=== PATIENT | female | born 1975 | race Caucasian/White ===

== ENCOUNTER 2019-11-30 18:33 | Emergency (ER) | payer OTHER ==
[2019-11-30 18:38] VITALS: BP 118/40; PULSE 81; TEMP 98.7; BMI 26.6
[2019-11-30] MEDS ORDERED: TETANUS AND DIPHTHERIA TOXOID 0.5 ML DISP.SYRIN IM ONE (19:13)
[2019-11-30] MEDS ORDERED: HIV POST EXPOSURE PROPHYLAXIS KIT NR ONE (19:14)
[2019-11-30] MEDS ORDERED: HIV POST EXPOSURE PROPHYLAXIS KIT PO ONE (19:25)
--- NOTE | 2019-11-30 19:47 | PDOC ---
History of Present Illness - General Chief Complaint: Injury Stated Complaint: PRICK BY NEEDLE AT WORK Time Seen by Provider: 11/30/19 19:02 History Source: Patient Exam Limitations: No Limitations - History of Present Illness Initial Comments: 11/30/19 19:05 Patient is a 44-year-old female who presents to the ED after sustaining a needlestick to her right index finger. 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 The patient is unsure whether the needle was used to or clean. If the needle was used there is no way for her to know who the source patient was. The patient has a history of seasonal asthma but otherwise denies any past medical history. She denies any pain to the area. She immediately washed the area with antibacterial soap and warm water and expressed blood from the area. She states she was unable to see employee health at her job for 2 days so she came to the ED for evaluation. Past History - Medical History Allergies/Adverse Reactions: Allergies Allergy/AdvReac Type Severity Reaction Status Date / Time No Known Allergies Allergy Verified 11/30/19 19:13 Home Medications: Ambulatory Orders Raltegravir [Isentress -] 400 mg PO BID #60 tab 11/30/19 Asthma: Yes COPD: No - Reproductive History Is Patient Now?: No - Psycho-Social/Smoking History Smoking History: Never smoked - Substance Abuse Hx (Audit-C & DAST Scrn) How often the patient has a drink containing alcohol: Monthly or less Score: In Men: 4 or > Positive; In Women: 3 or > Positive: 1 Screen Result (Pos requires Nsg. Audit-10AR): Negative In the last yr the pt used illegal drug/Rx for NonMed reason: No Score: Yes response is considered Positive: 0 Screen Result (Positive result requires Nsg. DAST-10): Negative Review of Systems - Review of Systems Comments:: 11/30/19 19:05 - Review of Systems Able to Perform ROS?: Yes Constitutional: No: Fever, Chills, Loss of Appetite, Night Sweats, Weakness HEENTM: No: Eye Pain, Vision changes, Ear Pain, Throat Pain, Throat Swelling, Mouth Pain, Difficulty Swallowing Respiratory: No: Cough, Shortness of Breath, Wheezing, Sputum Production Cardiac (ROS): No: Chest Pain, Chest Tightness, Palpitations, Irregular Heart Beat, Edema ABD/GI: No: Nausea, Vomiting, Abdominal Pain, Diarrhea : No Dysuria, No Hematuria, No Frequency, No Urgency Musculoskeletal: No: Muscle Pain, Back Pain, Joint Pain, Muscle Weakness, Neck Pain Integumentary: No: Lesions, Rash; Positive: needlestick right index finger Neurological: No: Headache, Numbness, Tingling, Weakness, Speech Difficulties *Physical Exam - Vital Signs Last Vital Signs Temp Pulse Resp BP Pulse Ox 98.7 F 81 19 118/40 L 99 11/30/19 18:35 11/30/19 18:35 11/30/19 18:35 11/30/19 18:35 11/30/19 18:35 - Physical Exam 11/30/19 19:07 - Physical Exam General Appearance: Nourished, Appropriately Dressed, No Distress HEENT: EOMI, Normal Voice, Hearing Grossly Normal Neck: Supple, No Lymphadenopathy (R), No Lymphadenopathy (L), No Rigidity, No Decreased range of motion Respiratory/Chest: Lungs Clear, Normal Breath Sounds. No Respiratory Distress, No Accessory Muscle Use Cardiovascular: Regular Rhythm, Regular Rate, S1, S2 Gastrointestinal/Abdominal: Normal Bowel Sounds, Soft. Non-tender, No Guarding, No Rebound, No Rigidity Musculoskeletal: Normal Inspection. No Decreased Range of Motion Extremity: Normal Capillary Refill, Normal Inspection Integumentary: Normal Color, Dry. No Rash; Right index finger on the medial aspect of the pad there is a minimally visible puncture wound appreciated. No surrounding erythema appreciated. No ecchymosis appreciated. No crepitus. No tenderness to palpation. No active bleeding. No sign of infection. Neurologic: metal riveter II-XII NML intact, Fully Oriented, Alert, Normal Mood/Affect, Normal Response ED Treatment Course - LABORATORY CBC & Chemistry Diagram: 11/30/19 19:31 11/30/19 19:31 Medical Decision Making - Medical Decision Making 11/30/19 19:42 Assessment: Patient is a 44-year-old female with a right index finger needlestick that she sustained at work today from an unknown source patient. She was cleaning up rubbish on the floor and was stuck with a needle that was accidentally on the ground. Plan: -Post exposure work-up/labs done -Postexposure prep kit given -Referral to the [facility] given -Patient understands and agrees with this treatment plan and she is stable for discharge. Discharge - Discharge Information Problems reviewed: Yes Clinical Impression/Diagnosis: Needlestick injury accident Condition: Stable Disposition: HOME - Additional Discharge Information Prescriptions: Raltegravir [Isentress -] 400 mg PO BID #60 tab - Follow up/Referral Referrals: ON STAFF,NOT [Primary Care Provider] - [facility] [Provider Group] - Call tomorrow - Patient Discharge Instructions Patient Printed Discharge Instructions: DI for Accidental Exposure to Body Fluids Additional Instructions: You have been given your full prescription of Truvada. A remaining prescription for Isentress has been sent to your pharmacy and you are to take it for an additional 23 days for a total of 25 days. You have been given 5 days worth of the prescription from the emergency department today. You will get a call with a follow-up of all your lab work once it becomes available. Be sure to follow- up with your employee health in the [facility] for further evaluation and treatment. Call the [facility] tomorrow to schedule appointment within 1 week. - Post Discharge Activity
[2019-11-30] MEDS ORDERED: DIPHTH,PERTUSS(ACELL),TET 0.5 ML DISP.SYRIN IM ONE ×2 (19:56)
[2019-11-30 20:03] LABS: BASO % 0.9 % (0-2.0); EOS % 2.2 % (0-4.5); HEMATOCRIT 34.7 % (32.4-45.2); HEMOGLOBIN 10.9 GM/dL (10.7-15.3); LYMPH % 26.4 % (8-40); MCH 23.5 pg (25.7-33.7); MCHC 31.5 g/dl (32.0-36.0); MEAN CELL VOLUME 74.5 fl (80-96); MONO % 10.6 % (3.8-10.2); NEUT % 59.9 % (42.8-82.8); RBC 4.66 M/mm3 (3.60-5.2); RDW 16.4 % (11.6-15.6); WHITE BLOOD COUNT 9.2 K/mm3 (4.0-10.0)
[2019-11-30 20:20] LABS: BLOOD UREA NITROGEN 18.4 mg/dL (7-18); CALCIUM 8.9 mg/dL (8.5-10.1); POTASSIUM 4.6 mmol/L (3.5-5.1); TOT PROT 7.5 g/dl (6.4-8.2); URIC ACID 3.8 mg/dL (2.6-7.2)
[2019-11-30 20:21] LABS: BILIRUBIN,TOTAL 0.3 mg/dL (0.2-1); CREATININE 0.9 mg/dL (0.55-1.3); PHOSPHOROUS 3.6 mg/dL (2.5-4.9)
[2019-11-30 20:49] LABS: MEAN PLT VOLUME 9.9 fl (7.5-11.1); PLATELET COUNT 191 K/MM3 (134-434); PLATELET ESTIMATE NORMAL
== END 2019-11-30 20:03 | disposition home or self-care (01) ==
LOC: JERFT 18:33
PROC: 3E0234Z Introduction of Serum, Toxoid and Vaccine into Muscle, Percutaneous Approach (ICD-10-PCS; principal; 2019-11-30)
DX: S61.200A Unspecified open wound of right index finger without damage to nail, initial encounter (principal); W46.1XXA Contact with contaminated hypodermic needle, initial encounter
CPT/HCPCS: 36415; 80053; 82465; 82977; 83615; 84100; 84478; 84550; 85025; 86317; 86704; 86706; 86803; 87340; 87389; 90715; 99284-25